=== PATIENT | female | born 1995 | race African-American/Black ===

== ENCOUNTER 2017-04-17 19:16 | Emergency (ER) | payer OTHER ==
[2017-04-17 19:27] VITALS: BMI 19.7
--- NOTE | 2017-04-17 19:56 | PDOC ---
History of Present Illness - General Chief Complaint: Vaginal Bleeding Stated Complaint: VAGINAL BLEEDING Time Seen by Provider: 04/17/17 19:37 - History of Present Illness Initial Comments: 04/17/17 19:53 CHIEF COMPLAINT: vag bleeding HISTORY OF PRESENT ILLNESS: 22 yo F with hx of "thyroid condition" presents to ED with vaginal bleeding x 2 weeks. Patient reports her last period prior to that "was at the end of the month before." She reports b/l pelvic pain but denies any lightheadedness, dizziness, or palpitations. She reports her last STD test was September of last year and was negative. She reports that the bleeding has not been "that much" and that she went through approximately 3-5 pads daily. PAST MEDICAL HISTORY: Denies past medical history FAMILY HISTORY: Denies SOCIAL HISTORY: Denies tobacco, alcohol, illicit drug use. SURGICAL HISTORY: Denies ALLERGIES: No known drug allergies REVIEW OF SYSTEMS General/Constitutional: Denies fever or chills. Denies weakness, weight change. HEENT: Denies change in vision. Denies ear pain or discharge. Denies sore throat. Cardiovascular: Denies chest pain or shortness of breath. Respiratory: Denies cough, wheezing, or hemoptysis. Gastrointestinal: Denies nausea, vomiting, diarrhea or constipation. Denies rectal bleeding. Genitourinary: Vaginal bleeding x 2 weeks. Denies dysuria, frequency, or change in urination. Musculoskeletal: Denies joint or muscle swelling or pain. Denies neck or back pain. Skin and breasts: Denies rash or easy bruising. Neurologic: Denies headache, vertigo, loss of consciousness, or loss of sensation. PHYSICAL EXAM General Appearance: Well-appearing, appropriately dressed. No apparent distress. HEENT: EOMI, PERRLA, normal ENT inspection, normal voice, TMs normal, pharynx normal. No conjunctival pallor. No photophobia, scleral icterus. Respiratory/Chest: Lungs CTAB. Cardiovascular: RRR. S1, S2. Gastrointestinal/Abdominal: B/l pelvic tenderness and minimal tenderness to LUQ. Normal bowel sounds. Abdomen soft, non-distended. No organomegaly, pulsatile mass, guarding, hernia, hepatomegaly, splenomegaly. Pelvic: External genitalia normal without lesions. Vaginal vault with minimal bloody discharge. Cervix is long and closed. No cervical motion tenderness. Uterus is nontender and normal in size. Adnexa are nontender and without masses. Musculoskeletal/Extremities: Normal inspection. FROM of all extremities, normal capillary refill. Pelvis Stable. No CVA tenderness. No tenderness to extremities, pedal edema, swelling, erythema or deformity. Integumentary: Appropriate color, dry, warm. 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 Fully oriented, alert. Appropriate mood/affect. Motor strength 5/5. No appreciable EOM palsy, facial droop or sensory deficit. 04/17/17 21:09 04/17/17 23:02 Past History - Past Medical History Allergies/Adverse Reactions: Allergies Allergy/AdvReac Type Severity Reaction Status Date / Time No Known Allergies Allergy Verified 04/17/17 19:23 Home Medications: Ambulatory Orders Ibuprofen [Motrin -] 600 mg PO TID PRN #21 tablet 04/17/17 COPD: No Other medical history: Pt denies - Suicide/Smoking/Psychosocial Hx Smoking History: Never smoked Have you smoked in the past 12 months: No Information on smoking cessation initiated: No Hx Alcohol Use: No Drug/Substance Use Hx: No Substance Use Type: None *Physical Exam - Vital Signs Last Vital Signs Temp Pulse Resp BP Pulse Ox 97.8 F 76 18 129/82 99 04/17/17 19:24 04/17/17 19:24 04/17/17 19:24 04/17/17 19:24 04/17/17 19:24 ED Treatment Course - LABORATORY CBC & Chemistry Diagram: 04/17/17 20:10 04/17/17 20:10 Medical Decision Making - Medical Decision Making 04/17/17 19:56 22 yo F with hx of "thyroid condition" presents to ED with vaginal bleeding x 2 weeks. -CBC, CMP, T&S, serum preg -TVUS -UA, UCx Ultrasound results: Uterus and endometrial stripe appear normal. No ovarian cysts. Torsion unlikely. No significant free pelvic fluid. Read by Dr. David Danielle MD. Clinical presentation consistent with irregular menstruation. Advised patient to f/u with OBGYN and of signs and symptoms for return to ER; patient verbalized understanding and agrees to plan. *DC/Admit/Observation/Transfer Diagnosis at time of Disposition: Menstruation, abnormal - Discharge Dispostion Disposition: HOME Condition at time of disposition: Stable Admit: No - Prescriptions Prescriptions: Ibuprofen [Motrin -] 600 mg PO TID PRN #21 tablet PRN Reason: pain/cramping - Referrals Referrals: Nicole Serna MD [Staff Physician] - - Patient Instructions Printed Discharge Instructions: DI for Menorrhagia Additional Instructions: As discussed, you MUST follow up with an OBGYN within the next 1-2 weeks for further evaluation of your prolonged bleeding. If you develop lightheadedness, dizziness, significant shortness of breath, palpitations, or significant bleeding (more than one soaked pad an hour), please return to the ER. - Post Discharge Activity
[2017-04-17 20:26] LABS: BASO % 0.9 % (0-2.0); EOS % 3.9 % (0-4.5); HEMATOCRIT 31.8 % (32.4-45.2); HEMOGLOBIN 9.9 GM/dL (10.7-15.3); LYMPH % 33.2 % (8-40); MCH 23.3 pg (25.7-33.7); MEAN CELL VOLUME 75.2 fl (80-96); MEAN PLT VOLUME 8.5 fl (7.5-11.1); MONO % 7.5 % (3.8-10.2); NEUT % 54.5 % (42.8-82.8); PLATELET COUNT 244 K/MM3 (134-434); RBC 4.23 M/mm3 (3.60-5.2); WHITE BLOOD COUNT 6.8 K/mm3 (4.0-10.0)
[2017-04-17 20:54] LABS: URINE APPEARANCE CLEAR; URINE BILIRUBIN NEGATIVE (NEGATIVE); URINE BLOOD NEGATIVE (NEGATIVE); URINE COLOR STRAW; URINE GLUCOSE (UA) NEGATIVE (NEGATIVE); URINE KETONE NEGATIVE (NEGATIVE); URINE LEUK ESTERASE NEGATIVE (NEGATIVE); URINE NITRITE NEGATIVE (NEGATIVE); URINE PROTEIN NEGATIVE (NEGATIVE); URINE UROBILINOGEN 4.0 E.U/dl mg/dL (0.2-1.0)
[2017-04-17 21:04] LABS: ALBUMIN 4.2 g/dl (3.4-5.0); ALK PHOS 61 U/L (45-117); ANION GAP 5 (8-16); BILIRUBIN,TOTAL 0.3 mg/dL (0.2-1.0); BLOOD UREA NITROGEN 14 mg/dL (7-18); CALCIUM 8.3 mg/dL (8.5-10.1); CHLORIDE 104 mmol/L (98-107); CO2 27 mmol/L (21-32); CREATININE 0.6 mg/dL (0.55-1.02); GLUCOSE,RANDOM 98 mg/dL (74-106); POTASSIUM 4.2 mmol/L (3.5-5.1); SGOT/AST 12 U/L (15-37); SGPT/ALT 13 U/L (12-78); SODIUM 136 mmol/L (136-145); TOT PROT 7.9 g/dl (6.4-8.2)
[2017-04-17] MEDS ORDERED: IBUPROFEN 600 MG TABLET (FP) PO ONE ×2 (21:10→21:24)
[2017-04-17 23:16] VITALS: BP 122/76; PULSE 80; TEMP 98.1
== END 2017-04-17 23:23 | disposition home or self-care (01) ==
LOC: JER 19:16
DX: N92.5 Other specified irregular menstruation (principal)
CPT/HCPCS: 36415; 76830-TC; 80053; 81003; 84703; 85025; 86850; 86900; 86901; 87086; 99282-25

== ENCOUNTER 2018-02-06 23:27 | Emergency (ER) | payer SELFPAY ==
--- NOTE | 2018-02-07 00:07 | PDOC ---
History of Present Illness - General Chief Complaint: Pain Stated Complaint: CRAMPS Time Seen by Provider: 02/07/18 00:07 History Source: Patient Exam Limitations: No Limitations - History of Present Illness Initial Comments: 02/07/18 00:33 22 year old female with PMH hypothyroidism, genital herpes presented to ED for suprapubic pain x1 month. She stated he pain is constant, crampy, alleviated by urinating/defecating, no aggravating factors, nonradiating. She admitted to increased urinary frequency x2 weeks. She denied fever, chills, nausea, vomiting , diarrhea, constipation, pain with defecation, blood in stool, vaginal bleeding , vaginal discharge. She stated her LMP was 12/23/17, and that her periods are irregular. She denied history of STI. She is sexually active with one male partner and uses condoms every time. [id number]. Past History - Past Medical History Allergies/Adverse Reactions: Allergies Allergy/AdvReac Type Severity Reaction Status Date / Time No Known Allergies Allergy Verified 02/07/18 00:21 COPD: No - Immunization History Immunization Up to Date: Yes - Suicide/Smoking/Psychosocial Hx Smoking History: Never smoked Have you smoked in the past 12 months: No Hx Alcohol Use: No Drug/Substance Use Hx: No Substance Use Type: None Review of Systems - Review of Systems Able to Perform ROS?: Yes Comments:: 02/07/18 00:35 General: denied fever, chills, night sweats, generalized weakness. HEENT: denied sore throat, rhinorrhea, ear pain. Heart: denied chest pain, palpitations, syncope, lower extremity swelling, diaphoresis. Respiratory: denied shortness of breath, cough, sputum production, hemoptysis. Abdomen: admitted to abdominal pain. denied nausea, vomiting, diarrhea, constipation, blood in stool. : admitted to increased urinary frequency. denied dysuria, hematuria, urinary incontinence, flank pain. Back: denied back pain. Musculoskeletal: denied joint pain, muscle pain, joint swelling. Neurological: denied headache, dizziness, numbness, tingling, weakness. Skin: denied rash, laceration, abrasion. *Physical Exam - Physical Exam Comments: 02/07/18 00:36 Constitutional: Well-nourished, Well-developed, appearing stated age. HEENT: head is normocephalic, atraumatic. EOMI. PERRLA. Neck: supple. Full ROM. Heart: regular rhythm. no murmurs, rubs or gallops. Lungs: clear to auscultation bilaterally. no crackles, rhonchi or wheezing. no stridor. Abdomen: soft, flat. tenderness to palpation of LLQ, suprapubic area. normal bowel sounds. no rebound, guarding, masses. Back: no CVA tenderness bilaterally. Pelvic: normal external genitalia, no lesions. no blood in vaginal vault. no lesions to cervix. normal white discharge. no CMT. no adnexal tenderness bilaterally. Extremities: Peripheral pulses intact. No lower extremity edema. Neurological: CN 2-12 grossly intact. Moves all four extremities. Psych: awake, alert, oriented x3. Follows commands. Answers questions appropriately. ED Treatment Course - LABORATORY CBC & Chemistry Diagram: 02/07/18 00:30 02/07/18 00:30 Medical Decision Making - Medical Decision Making 02/07/18 00:38 22 year old female with above PMH presented to ED for suprapubic painx1 month associated with increased urinary frequency. Afebrile. Mild tachycardia. No hypotension. No tachypnea. Pending CBC, CMP, coags, T/S, serum test, UA/UC, TVUS. PO tylenol ordered for pain. 02/07/18 00:54 Pt reassessed, sitting up straight, laughing with boyfriend. 02/07/18 00:56 CBC WBC 6.5 K/mm3 (4.0-10.0) 02/07/18 00:30 RBC 3.99 M/mm3 (3.60-5.2) 02/07/18 00:30 Hgb 10.7 GM/dL (10.7-15.3) 02/07/18 00:30 Hct 32.2 % (32.4-45.2) L 02/07/18 00:30 MCV 80.9 fl (80-96) 02/07/18 00:30 MCH 26.9 pg (25.7-33.7) D 02/07/18 00:30 MCHC 33.3 g/dl (32.0-36.0) 02/07/18 00:30 RDW 15.4 % (11.6-15.6) 02/07/18 00:30 Plt Count 316 K/MM3 (134-434) D 02/07/18 00:30 MPV 8.4 fl (7.5-11.1) 02/07/18 00:30 Absolute Neuts (auto) 3.7 K/mm3 (1.5-8.0) 02/07/18 00:30 Neutrophils % 57.5 % (42.8-82.8) 02/07/18 00:30 Lymphocytes % 30.2 % (8-40) 02/07/18 00:30 Monocytes % 7.7 % (3.8-10.2) 02/07/18 00:30 Eosinophils % 4.1 % (0-4.5) 02/07/18 00:30 Basophils % 0.5 % (0-2.0) 02/07/18 00:30 Nucleated RBC % 0 % (0-0) 02/07/18 00:30 No leukocytosis. Borderline anemia. 02/07/18 01:35 CMP Sodium 141 mmol/L (136-145) 02/07/18 00:30 Potassium 3.9 mmol/L (3.5-5.1) 02/07/18 00:30 Chloride 105 mmol/L (98-107) 02/07/18 00:30 Carbon Dioxide 31 mmol/L (21-32) 02/07/18 00:30 Anion Gap 5 MMOL/L (8-16) L 02/07/18 00:30 BUN 11 mg/dL (7-18) 02/07/18 00:30 Creatinine 0.7 mg/dL (0.55-1.3) 02/07/18 00:30 Creat Clearance w eGFR > 60 (>60) 02/07/18 00:30 Random Glucose 68 mg/dL (74-106) L 02/07/18 00:30 Calcium 8.7 mg/dL (8.5-10.1) 02/07/18 00:30 Total Bilirubin 0.4 mg/dL (0.2-1) 02/07/18 00:30 AST 21 U/L (15-37) 02/07/18 00:30 ALT 15 U/L (13-61) 02/07/18 00:30 Alkaline Phosphatase 59 U/L (45-117) 02/07/18 00:30 Total Protein 7.7 g/dl (6.4-8.2) 02/07/18 00:30 Albumin 3.9 g/dl (3.4-5.0) 02/07/18 00:30 Lipase 242 U/L (73-393) 02/07/18 00:30 TSH 1.65 uIU/ml (0.358-3.74) 02/07/18 00:30 Beta HCG, Quant < 1.0 mIU/ml 02/07/18 00:30 No electrolyte abnormalities. Hypoglycemia - Pt given juice No LFT abnormalities. Normal lipase. Normal TSH. Negative serum test. 02/07/18 01:46 Urine Test Results Urine Color Yellow 02/07/18 01:23 Urine Appearance Clear 02/07/18 01:23 Urine pH 8.0 (5.0-8.0) D 02/07/18 01:23 Ur Specific [place] 1.025 (1.010-1.035) 02/07/18 01:23 Urine Protein 1+ (NEGATIVE) H 02/07/18 01:23 Urine Glucose (UA) Negative (NEGATIVE) 02/07/18 01:23 Urine Ketones Negative (NEGATIVE) 02/07/18 01:23 Urine Blood Negative (NEGATIVE) 02/07/18 01:23 Urine Nitrite Negative (NEGATIVE) 02/07/18 01:23 Urine Bilirubin Negative (<2.0 mg/dL) 02/07/18 01:23 Ur Leukocyte Esterase Negative (NEGATIVE) 02/07/18 01:23 No evidence of UTI. Pending TVUS report. 02/07/18 01:53 Pt signed out to Dr. Gavin, who will assume care for her while she is in the Emergency Department. 02/08/18 15:58 TVUS report reviewed: no ovarian masses. no evidence of torsion. *DC/Admit/Observation/Transfer Diagnosis at time of Disposition: Suprapubic abdominal pain - Discharge Dispostion Disposition: HOME Condition at time of disposition: Improved - Referrals - Patient Instructions Printed Discharge Instructions: DI for Abdominal Pain-Adult Additional Instructions: Follow up with your OBGYN or primary care provider within the next 3 days. Come back to the ER for any new, worsening or concerning symptom. - Post Discharge Activity
[2018-02-07] MEDS ORDERED: ACETAMINOPHEN 500 MG TABLET (FP) PO ONE (00:37)
[2018-02-07] MEDS ORDERED: ACETAMINOPHEN 325 MG TABLET (FP) PO ONE (00:45)
[2018-02-07] MEDS ORDERED: ACETAMINOPHEN 325 MG TABLET (FP) ONE (00:49)
[2018-02-07 00:52] LABS: BASO % 0.5 % (0-2.0); EOS % 4.1 % (0-4.5); HEMATOCRIT 32.2 % (32.4-45.2); HEMOGLOBIN 10.7 GM/dL (10.7-15.3); LYMPH % 30.2 % (8-40); MCH 26.9 pg (25.7-33.7); MCHC 33.3 g/dl (32.0-36.0); MEAN CELL VOLUME 80.9 fl (80-96); MEAN PLT VOLUME 8.4 fl (7.5-11.1); MONO % 7.7 % (3.8-10.2); NEUT % 57.5 % (42.8-82.8); PLATELET COUNT 316 K/MM3 (134-434); RBC 3.99 M/mm3 (3.60-5.2); RDW 15.4 % (11.6-15.6); WHITE BLOOD COUNT 6.5 K/mm3 (4.0-10.0)
--- NOTE | 2018-02-07 00:55 | PDOC ---
Attending Attestation - HPI HPI: This patient is a 22 year old female with PMHx of hypothyroidism, genital herpes who presents with lower suprapubic abdominal pain (1 month) and increased frequency (2 weeks) She describes pain as constant, cramp-like, non- radiating, alleviated upon urinating/defecating. She also endorses 2 weeks of urinary frequency. LMP in December - she has irregular periods. Denies previous pregnancies. Denies fever, chills, nausea, vomiting, diarrhea, constipation, pain with defecation, blood in stool, vaginal bleeding, vaginal discharge. 02/07/18 01:05 - Physicial Exam PE: GENERAL: Well-appearing, well-nourished. No apparent distress. HEENT: Normocephalic, atraumatic. PERRL, EOM intact. CARDIOVASCULAR: Normal S1, S2. Regular rate and rhythm. PULMONARY: Clear to auscultation bilaterally. ABDOMEN: Soft, non-distended, LLQ and suprapubic tenderness to palpation. EXTREMITIES: Normal ROM in all four extremities. No gross deformities. SKIN: Warm, dry. No rash NEUROLOGICAL: No focal neurological deficits. 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
[2018-02-07 01:02] VITALS: BP 118/76; PULSE 102; TEMP 98.6; BMI 21.9
[2018-02-07 01:13] LABS: INR 0.97 (0.83-1.09); PROTHROMBIN TIME (PATIENT) 11.4 SEC (9.7-13.0)
[2018-02-07 01:16] LABS: ACTIVATED PTT 32.3 SECONDS (25.2-36.5)
[2018-02-07 01:23] LABS: ALBUMIN 3.9 g/dl (3.4-5.0); ALK PHOS 59 U/L (45-117); ANION GAP 5 MMOL/L (8-16); BILIRUBIN,TOTAL 0.4 mg/dL (0.2-1); BLOOD UREA NITROGEN 11 mg/dL (7-18); CALCIUM 8.7 mg/dL (8.5-10.1); CHLORIDE 105 mmol/L (98-107); CO2 31 mmol/L (21-32); CREATININE 0.7 mg/dL (0.55-1.3); GLUCOSE,RANDOM 68 mg/dL (74-106); LIPASE 242 U/L (73-393); POTASSIUM 3.9 mmol/L (3.5-5.1); SGOT/AST 21 U/L (15-37); SGPT/ALT 15 U/L (13-61); SODIUM 141 mmol/L (136-145); TOT PROT 7.7 g/dl (6.4-8.2)
[2018-02-07 01:42] LABS: URINE APPEARANCE CLEAR; URINE BILIRUBIN NEGATIVE (<2.0 mg/dL); URINE COLOR YELLOW; URINE GLUCOSE (UA) NEGATIVE (NEGATIVE); URINE KETONE NEGATIVE (NEGATIVE); URINE LEUK ESTERASE NEGATIVE (NEGATIVE); URINE NITRITE NEGATIVE (NEGATIVE); URINE PROTEIN 1+ (NEGATIVE)
[2018-02-07 01:53] LABS: EPI CELLS RARE /HPF (FEW); URINE MUCUS RARE
--- NOTE | 2018-02-07 02:48 | PDOC ---
*Physical Exam - Vital Signs Last Vital Signs Temp Pulse Resp BP Pulse Ox 98.6 F 102 H 18 118/76 99 02/06/18 23:56 02/06/18 23:56 02/06/18 23:56 02/06/18 23:56 02/06/18 23:56 ED Treatment Course - LABORATORY CBC & Chemistry Diagram: 02/07/18 00:30 02/07/18 00:30 - ADDITIONAL ORDERS Additional order review: Laboratory Results 02/07/18 02/07/18 02/07/18 01:23 00:30 00:30 PT with INR 11.40 INR 0.97 PTT (Actin FS) 32.3 Sodium 141 Potassium 3.9 Chloride 105 Carbon Dioxide 31 Anion Gap 5 L BUN 11 Creatinine 0.7 Creat Clearance w eGFR > 60 Random Glucose 68 L Calcium 8.7 Total Bilirubin 0.4 AST 21 ALT 15 Alkaline Phosphatase 59 Total Protein 7.7 Albumin 3.9 Lipase 242 TSH 1.65 Beta HCG, Quant < 1.0 Urine Color Yellow Urine Appearance Clear Urine pH 8.0 D Ur Specific [place] 1.025 Urine Protein 1+ H Urine Glucose (UA) Negative Urine Ketones Negative Urine Blood Negative Urine Nitrite Negative Urine Bilirubin Negative Urine Urobilinogen 2.0 H Ur Leukocyte Esterase Negative Urine WBC (Auto) 1 Urine RBC (Auto) <1 Ur Epithelial Cells Rare Urine Mucus Rare 02/07/18 00:30 RBC 3.99 MCV 80.9 MCHC 33.3 RDW 15.4 MPV 8.4 Neutrophils % 57.5 Lymphocytes % 30.2 Monocytes % 7.7 Eosinophils % 4.1 Basophils % 0.5 - Medications Given in the ED: ED Medications Discontinued Medications Generic Name Dose Route Start Last Admin Trade Name Megan PRN Reason Stop Dose Admin Acetaminophen 1,000 mg 02/07/18 00:37 02/07/18 00:52 Tylenol - PO 02/07/18 00:38 Not Given ONCE ONE Acetaminophen 975 mg 02/07/18 00:45 02/07/18 00:51 Tylenol - PO 02/07/18 00:46 975 mg ONCE ONE Administration *DC/Admit/Observation/Transfer Diagnosis at time of Disposition: Suprapubic abdominal pain - Discharge Dispostion Disposition: HOME Condition at time of disposition: Improved Decision to Admit order: No - Referrals - Patient Instructions Printed Discharge Instructions: DI for Abdominal Pain-Adult Additional Instructions: Follow up with your OBGYN or primary care provider within the next 3 days. Come back to the ER for any new, worsening or concerning symptom. - Post Discharge Activity
== END 2018-02-07 03:00 | disposition home or self-care (01) ==
LOC: JER 23:27
DX: R10.30 Lower abdominal pain, unspecified (principal); E03.9 Hypothyroidism, unspecified; B00.89 Other herpesviral infection
CPT/HCPCS: 36415; 76830-TC; 80053; 81003; 81015; 83690; 84443; 84702; 85025; 85610; 85730; 86850; 86900; 86901; 87086; 99284-25

== ENCOUNTER 2018-05-14 12:15 | Emergency (ER) | payer SELFPAY ==
[2018-05-14 12:44] VITALS: BP 112/76; PULSE 72; TEMP 98.4; BMI 17.9
[2018-05-14] MEDS ORDERED: ACETAMINOPHEN 325 MG TABLET (FP) PO ONE (13:43)
--- NOTE | 2018-05-14 13:43 | PDOC ---
History of Present Illness - General Chief Complaint: Pain, Acute Stated Complaint: ABD PAIN/ FEVER Time Seen by Provider: 05/14/18 13:25 History Source: Patient Exam Limitations: No Limitations - History of Present Illness Initial Comments: 05/14/18 16:00 Patient is a 23-year-old female no past medical history who presents to the ER with 1 week of abdominal pain. Patient states that the pain is "all over her stomach "she states that she hasn't been eating much due to the pain. She states that her last bowel movement was approximately 2 weeks ago. Nothing makes the pain better or worse. Also admits to subjective fevers. Denies nausea , vomiting, diarrhea, frequency, urgency, hematuria, lightheadedness and dizziness. Past History - Travel Traveled outside of the country in the last 30 days: No Close contact w/someone who was outside of country & ill: No - Past Medical History Allergies/Adverse Reactions: Allergies Allergy/AdvReac Type Severity Reaction Status Date / Time peanut Allergy Verified 05/14/18 12:41 Home Medications: Ambulatory Orders Polyethylene Glycol 3350 [Miralax (For Bowel Prep) -] 17 gm PO DAILY #1 bottle 05/14/18 COPD: No - Immunization History Immunization Up to Date: Yes - Suicide/Smoking/Psychosocial Hx Smoking History: Never smoked Have you smoked in the past 12 months: No Hx Alcohol Use: No Drug/Substance Use Hx: No Substance Use Type: None Review of Systems - Review of Systems Able to Perform ROS?: Yes Comments:: 05/14/18 16:03 CONSTITUTIONAL: Absent: fever, chills, diaphoresis, generalized weakness, malaise, loss of appetite HEENT: Absent: rhinorrhea, nasal congestion, throat pain, throat swelling, difficulty swallowing, mouth swelling, ear pain, eye pain, visual Changes CARDIOVASCULAR: Absent: chest pain, loss of consciousness, palpitations, irregular heart rate, peripheral edema RESPIRATORY: Absent: cough, shortness of breath, dyspnea with exertion, orthopnea, wheezing, stridor, hemoptysis GASTROINTESTINAL: Present: generalized abdominal pain, constipation Absent: abdominal distension , nausea, vomiting, diarrhea, melena, hematochezia GENITOURINARY: Absent: dysuria, frequency, urgency, hesitancy, hematuria, flank pain, genital pain MUSCULOSKELETAL: Absent: myalgia, arthralgia, joint swelling SKIN: Absent: rash, itching, pallor HEMATOLOGIC/IMMUNOLOGIC: Absent: easy bleeding, easy bruising, lymphadenopathy, frequent infections ENDOCRINE: Absent: unexplained weight gain, unexplained weight loss, heat intolerance, cold intolerance NEUROLOGIC: Absent: headache, focal weakness or paresthesias, dizziness, unsteady gait, seizure, mental status changes, bladder or bowel incontinence PSYCHIATRIC: Absent: anxiety, depression, suicidal or homicidal ideation, hallucinations. 05/14/18 16:22 Is the patient limited Indonesian proficient: No *Physical Exam - Vital Signs Last Vital Signs Temp Pulse Resp BP Pulse Ox 98.4 F 72 18 112/76 100 05/14/18 12:41 05/14/18 12:41 05/14/18 12:41 05/14/18 12:41 05/14/18 12:41 - Physical Exam Comments: 05/14/18 16:22 GENERAL: Well developed, well nourished. Awake and alert. No acute distress. HEENT: Normocephalic, atraumatic. PERRLA, EOMI. No conjunctival pallor. Sclera are non- icteric. Moist mucous membranes. Oropharynx is clear. NECK: Supple. Full ROM. No JVD. Carotid pulses 2+ and symmetric, without bruits. No thyromegaly. No lymphadenopathy. CARDIOVASCULAR: Regular rate and rhythm. No murmurs, rubs, or gallops. Distal pulses are 2+ and symmetric. PULMONARY: No evidence of respiratory distress. Lungs clear to auscultation bilaterally. No wheezing, rales or rhonchi. ABDOMINAL: Generalized tenderness to palpation of the abdomen with no focal findings. Soft. Non-distended. No rebound or guarding. No organomegaly. Normoactive bowel sounds. MUSCULOSKELETAL Normal range of motion at all joints. No bony deformities or tenderness. No CVA tenderness. EXTREMITIES: No cyanosis. No clubbing. No edema. No calf tenderness. SKIN: Warm and dry. Normal capillary refill. No rashes. No jaundice. NEUROLOGICAL: Alert, awake, appropriate. Cranial nerves 2-12 intact. No deficits to light touch and temperature in face, upper extremities and lower extremities. No motor deficits in the in face, upper extremities and lower extremities. Normoreflexic in the upper and lower extremities. Normal speech. Toes are down- going bilaterally. Gait is normal without ataxia. PSYCHIATRIC: Cooperative. Good eye contact. Appropriate mood and affect. 05/14/18 16:35 Moderate Sedation - Procedure Monitoring Vital Signs: Procedure Monitoring Vital Signs Temperature 98.4 F 05/14/18 12:41 Pulse Rate 72 05/14/18 12:41 Respiratory Rate 18 05/14/18 12:41 Blood Pressure 112/76 05/14/18 12:41 O2 Sat by Pulse Oximetry (%) 100 05/14/18 12:41 ED Treatment Course - LABORATORY CBC & Chemistry Diagram: 05/14/18 14:14 05/14/18 14:14 Medical Decision Making - Medical Decision Making 05/14/18 16:35 Patient is a 23-year-old female no past medical history who presents to the ER for one week of abdominal pain and 2 weeks without a bowel movement. On exam abdomen is diffusely tender with no focal findings. Abdomen is also mildly protuberant. Basic labs, urine, abdomen x-ray, Tylenol ordered. No leukocytosis, electrolytes are grossly normal. Urine is negative for infection. Abdomen x-ray with a large stool burden at this time. Given no focal tenderness , normal lab work most likely constipation. Patient states she does have similar episodes like this in the past but they usually resolve themselves. Repeat abdomen exam with decreased pain diffusely. GI follow-up given. Discharge home I discussed the physical exam findings, ancillary test results and final diagnoses with the patient. I answered all of the patient's questions. The patient was satisfied with the care received and felt comfortable with the discharge plan and treatment plan. The Patient agrees to follow up with the primary care physician/specialist within 24-72 hours. Return precautions were given. *DC/Admit/Observation/Transfer Diagnosis at time of Disposition: Constipation Qualifiers: Constipation type: unspecified constipation type Qualified Code(s): K59.00 - Constipation, unspecified Abdominal pain Qualifiers: Abdominal location: generalized Qualified Code(s): R10.84 - Generalized abdominal pain - Discharge Dispostion Disposition: HOME Condition at time of disposition: Stable Decision to Admit order: No - Prescriptions Prescriptions: Polyethylene Glycol 3350 [Miralax (For Bowel Prep) -] 17 gm PO DAILY #1 bottle - Referrals Referrals: Yoseph Villalobos MD [Staff Physician] - - Patient Instructions Printed Discharge Instructions: DI for Constipation Additional Instructions: You were evaluated for your abdominal pain today Your lab work does not show an infection at this time Your x-ray shows a lot of stool in the colon Please drink plenty of fluids and eat foods high in fiber Take the miralax daily to help soften your stool Please follow up with gastroenterology; a referral has been provided Return to the ED for worsening abdominal pain, lightheadness, vomiting, or if you have any changes in your symptoms - Post Discharge Activity Forms/Work/School Notes: Back to Work
[2018-05-14] MEDS ORDERED: ACETAMINOPHEN 325 MG TABLET (FP) ONE (14:15)
[2018-05-14 14:35] LABS: URINE APPEARANCE CLEAR; URINE BILIRUBIN NEGATIVE (<2.0 mg/dL); URINE COLOR YELLOW; URINE GLUCOSE (UA) NEGATIVE (NEGATIVE); URINE KETONE TRACE (NEGATIVE); URINE LEUK ESTERASE NEGATIVE (NEGATIVE); URINE NITRITE NEGATIVE (NEGATIVE); URINE PROTEIN 1+ (NEGATIVE); URINE UROBILINOGEN 4.0 E.U/dl mg/dL (0.2-1.0)
[2018-05-14 14:47] LABS: ALBUMIN 4.3 g/dl (3.4-5.0); ALK PHOS 51 U/L (45-117); ANION GAP 3 MMOL/L (8-16); BILIRUBIN,TOTAL 0.3 mg/dL (0.2-1); BLOOD UREA NITROGEN 21 mg/dL (7-18); CALCIUM 8.7 mg/dL (8.5-10.1); CHLORIDE 106 mmol/L (98-107); CO2 28 mmol/L (21-32); CREATININE 0.7 mg/dL (0.55-1.3); GLUCOSE,RANDOM 89 mg/dL (74-106); POTASSIUM 4.5 mmol/L (3.5-5.1); SGOT/AST 15 U/L (15-37); SGPT/ALT 11 U/L (13-61); SODIUM 137 mmol/L (136-145); TOT PROT 8.4 g/dl (6.4-8.2)
[2018-05-14 14:56] LABS: BASO % 0.5 % (0-2.0); EOS % 6.3 % (0-4.5); HEMATOCRIT 36.4 % (32.4-45.2); HEMOGLOBIN 12.1 GM/dL (10.7-15.3); LYMPH % 36.4 % (8-40); MCH 27.3 pg (25.7-33.7); MCHC 33.2 g/dl (32.0-36.0); MEAN CELL VOLUME 82.2 fl (80-96); MEAN PLT VOLUME 8.7 fl (7.5-11.1); MONO % 10.3 % (3.8-10.2); NEUT % 46.5 % (42.8-82.8); PLATELET COUNT 250 K/MM3 (134-434); RBC 4.43 M/mm3 (3.60-5.2); RDW 15.9 % (11.6-15.6); WHITE BLOOD COUNT 3.8 K/mm3 (4.0-10.0)
[2018-05-14 15:13] LABS: HCG,QUALITATIVE URINE Negative
[2018-05-14 15:32] LABS: EPI CELLS NONE SEEN /HPF (FEW); URINE BACTERIA R /hpf (NONE SEEN)
== END 2018-05-14 16:10 | disposition home or self-care (01) ==
LOC: JER 12:15
DX: K59.00 Constipation, unspecified (principal)
CPT/HCPCS: 36415; 74019-TC-FY; 80053; 81003; 81015; 84703; 85025; 99283-25

== ENCOUNTER 2018-08-18 19:33 | Emergency (ER) | payer SELFPAY | END 2018-08-18 20:48 | disposition home or self-care (01) | LOC: JER 19:33 ==

== ENCOUNTER 2019-02-25 06:53 | Emergency (ER) | payer OTHER ==
[2019-02-25 07:33] VITALS: BMI 19.5
--- NOTE | 2019-02-25 08:13 | PDOC ---
Attending Attestation - Resident Resident Name: Addi Ford - ED Attending Attestation I have performed the following: I have examined & evaluated the patient, The case was reviewed & discussed with the resident, I agree w/resident's findings & plan, Exceptions are as noted - HPI HPI: 02/25/19 12:16 Ms. Singh is a 23 yo F who presents to the ER with a complaint of seizure like activity Pt went out with her sister last night Per sister, she was noted to be shaking hands and feet Her eyes then rolled back, and she was "out" for 10 minutes Pt was told that she possibly had a seizure She went home, panicked and then come in to the ER Pt denies tongue biting, urinary incontinence, or fecal incontinence. Denies trauma. Pt denies EtOH or street drug abuse. Pt denies family history of epilepsy, sudden , cardiac conditions - Physicial Exam PE: 02/25/19 08:13 GENERAL: The patient is in no acute distress. ENT: Ears normal, nares patent, oropharynx clear without exudates. Moist mucous membranes. NECK: Normal range of motion, supple LUNGS: Breath sounds equal, clear to auscultation bilaterally. No wheezes, and no crackles. HEART:Regular rate and rhythm, normal S1 and S2 without murmur, rub or gallop. ABDOMEN: Soft, nontender, normoactive bowel sounds. EXTREMITIES: Normal range of motion, no edema. NEUROLOGICAL: Cranial nerves II through XII grossly intact. Normal speech. No focal neurological deficits. SKIN: Warm, Dry, normal turgor, no rashes or lesions noted. 02/25/19 12:27 - Medical Decision Making 02/25/19 12:28 Laboratory Tests 02/25/19 02/25/19 02/25/19 09:00 09:00 10:05 WBC 7.0 Hgb 12.5 Hct 38.9 Plt Count 380 D BUN 11.4 Creatinine 0.6 Ur Leukocyte Esterase 1+ H Urine WBC (Auto) 7 Urine RBC (Auto) 0 Urine HCG, Qual 02/25/19 10:15 WBC Hgb Hct Plt Count BUN Creatinine Ur Leukocyte Esterase Urine WBC (Auto) Urine RBC (Auto) Urine HCG, Qual Negative CT head: negative Will discharge to home Follow up with PMD within 1 week Discharge - Discharge Information Problems reviewed: Yes Clinical Impression/Diagnosis: Seizure-like activity Condition: Good Disposition: HOME - Follow up/Referral - Patient Discharge Instructions Patient Printed Discharge Instructions: DI for Psychogenic Nonepileptic Seizures Additional Instructions: You were seen today after having seizure-like activity last night at the club. Your Head CT and blood work was all normal today. 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 This is generally non-life threatening. Please follow up with your primary care doctor in the next week. You will need to call to make the appointment. I have included all of your results from today s visit in the packet. Take it with you so your doctor can review them. Print Language: LATVIAN - Post Discharge Activity Work/Back to School Note: Back to Work
--- NOTE | 2019-02-25 09:03 | PDOC ---
History of Present Illness - General Chief Complaint: Syncope/Near Syncope Stated Complaint: SEIZURE Time Seen by Provider: 02/25/19 07:59 History Source: Patient Exam Limitations: No Limitations - History of Present Illness Initial Comments: HPI: 23 y/o female presenting to [facility] ER complaining of "a seizure," now with bifrontal headache. Pt reports she felt cold then blacked out for approx. 10 minutes while at the club this morning around 3AM. Her sister (not present at bedside) witnessed the event and told the pt her eyes rolled back in her head and she was shaking all over. She then went home and "was panicking" because she had a seizure. Pt denies tongue biting, urinary incontinence, or fecal incontinence. Denies trauma. Pt denies EtOH or street drug abuse. Denies unexplained bruising. Denies heavy caffeine usage. Denies using over the counter vitamins or supplements. Social Hx: - denies significant life stressors. - Feels safe in relationship and in living environment Family Hx: - Denies sudden - Denies while swimming - Denies cardiac problems - Denies seizure disorders Medical Hx: - HSV-2 Surgical Hx: - Pt denies past surgical history Review of Systems: In addition to that documented in the HPI above, the additional ROS was obtained : Constitutional- Denies fevers or chills Head- Denies vision changes ENMT- Denies sore throat CV- Denies chest pain Resp- Denies SOB GI- Denies vomiting or diarrhea - Denies painful urination MSK- Denies recent trauma Skin- Denies new rashes Neuro- Denies new numbness or tingling or weakness Endocrine- Denies polyuria Heme- Denies bleeding or bruising Physical Examination: Vital signs and nursing notes reviewed. Constitutional- Well-developed, well-nourished adult female in no acute distress or obvious discomfort. Thin body habitus. Found semi-fowlers on hospital bed. Head- Normocephalic. No obvious external signs of trauma. Eyes- Pupils 3mm and PERRL. EOMI. Sclerae white. Conjunctiva moist and not injected. Ears- Hearing grossly intact. Nose- No nasal discharge. Throat- Oral cavity and pharynx normal. No inflammation, swelling, exudate, or lesions. Teeth and gingiva in good general condition. Uvula midline. Neck- Supple, trachea is midline. Cardiovascular / Chest- Regular rate and regular rhythm. No murmur, rubs, clicks , or gallops. Peripheral pulses- radial pulses full. No pretibial edema. Respiratory- Breathing unlabored. Equal chest rise and fall. Clear to auscultation bilaterally. No stridor, no wheezing, no rhonchi. Gastrointestinal- abdomen is soft, non-tender, non-distended. No hepatosplenemegaly. No pulsatile masses. No overlying skin lesions or obvious signs of trauma. Neuro- Alert and oriented x4. Moving all four extremities spontaneously. No facial asymmetry. No slurred speech. No upper or lower extremity drift. Sensation to all four extremities intact. Proximal and distal strength 5/5. Food Beverage Manager strength 5/5 - equal and symmetric. Plantar flexion and dorsiflexion 5/5. No nuchal rigidity. Intact rapid alternating movements and heel to hancock. Skin- Warm, dry, and intact. No bruising, rashes, or other lesions. - No R or L CVA tenderness. Psych- Downward gaze with little eye contact. Affect- withdrawn. Speech was non- labored, non-pressured. Dressed and groomed appropriately. MDM: 23 y/o female presenting with seizure-like activity. No h/o similar. Afebrile. Vitals unremarkable for hypotension or tachycardia. Physical exam as described above. No acute neurologic deficits. HCT unremarkable for acute intracranial pathology. Labs reviewed without significant derangement. UTox and BAL all negative. 25 Feb 2019 11:53 AM Telephone conversation with pts sister on the pts cell phone. Reports her sister was standing when the shaking started in her hands and legs. Her eyes were open and tracking appropriately. She was able to walk outside of the club unassisted while the episode was occuring. Pt never lost muscle tone. Suspect likely non-epileptic seizures given description from sister and unremarkable ED workup. Discussed physical exam findings, laboratory results, and CT findings with pt. Answered all questions. Provided return precautions. pt expressed verbal understanding and agreement with plan to discharge home with outpatient follow up. Provided copies of todays results. Addi Ford M.D., PGY2 Emergency Medicine Resident Past History - Past Medical History Allergies/Adverse Reactions: Allergies Allergy/AdvReac Type Severity Reaction Status Date / Time peanut Allergy Verified 02/25/19 07:20 Home Medications: Ambulatory Orders NK [No Known Home Medication] 02/25/19 COPD: No - Immunization History Immunization Up to Date: Yes - Psycho Social/Smoking Cessation Hx Smoking History: Never smoked Have you smoked in the past 12 months: No Hx Alcohol Use: No Drug/Substance Use Hx: No Substance Use Type: None *Physical Exam - Vital Signs Last Vital Signs Temp Pulse Resp BP Pulse Ox 97.9 F 102 H 16 125/79 99 02/25/19 07:22 02/25/19 07:22 02/25/19 07:22 02/25/19 07:22 02/25/19 07:22 ED Treatment Course - LABORATORY CBC & Chemistry Diagram: 02/25/19 09:00 02/25/19 09:00 - ADDITIONAL ORDERS Additional order review: Laboratory Results 02/25/19 08:16 POC Glucometer 97 02/25/19 08:16 POC Glucometer 97 Discharge - Discharge Information Problems reviewed: Yes Clinical Impression/Diagnosis: Seizure-like activity Condition: Good Disposition: HOME - Admission No - Follow up/Referral - Patient Discharge Instructions Patient Printed Discharge Instructions: DI for Psychogenic Nonepileptic Seizures Additional Instructions: You were seen today after having seizure-like activity last night at the club. Your Head CT and blood work was all normal today. 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 This is generally non-life threatening. Please follow up with your primary care doctor in the next week. You will need to call to make the appointment. I have included all of your results from today s visit in the packet. Take it with you so your doctor can review them. Print Language: ETHIOPIAN - Post Discharge Activity
[2019-02-25 09:36] LABS: BASO % 0.5 % (0-2.0); BLOOD UREA NITROGEN 11.4 mg/dL (7-18); CALCIUM 9.9 mg/dL (8.5-10.1); CREATININE 0.6 mg/dL (0.55-1.3); EOS % 1.7 % (0-4.5); HEMATOCRIT 38.9 % (32.4-45.2); HEMOGLOBIN 12.5 GM/dL (10.7-15.3); LYMPH % 18.5 % (8-40); MCH 26.7 pg (25.7-33.7); MEAN CELL VOLUME 83.3 fl (80-96); MONO % 5.7 % (3.8-10.2); NEUT % 73.6 % (42.8-82.8); PLATELET COUNT 380 K/MM3 (134-434); POTASSIUM 4.4 mmol/L (3.5-5.1); RBC 4.67 M/mm3 (3.60-5.2); RDW 15.4 % (11.6-15.6)
[2019-02-25 09:46] LABS: MAGNESIUM 2.1 mg/dL (1.8-2.4)
[2019-02-25 10:33] LABS: EPI CELLS 7.6 /HPF (0-5/HPF); HYALINE CASTS 1 /lpf (0-8); PH,URINE 7.5 (5.0-8.0); URINE APPEARANCE CLEAR; URINE BACTERIA 167.4 /hpf (NEGATIVE); URINE BILIRUBIN NEGATIVE (NEGATIVE); URINE COLOR YELLOW; URINE GLUCOSE (UA) NEGATIVE (NEGATIVE); URINE KETONE NEGATIVE (NEGATIVE); URINE LEUK ESTERASE 1+ (NEGATIVE); URINE NITRITE NEGATIVE (NEGATIVE); URINE PROTEIN NEGATIVE (NEGATIVE); URINE RBC 0 /hpf (0-4); URINE UROBILINOGEN 0.2 mg/dL (0.2-1.0); URINE WBC 7 /hpf (0-5)
[2019-02-25 10:59] LABS: COCAINE, UR NEGATIVE ng/ml (CUTOFF=300); METHADONE, UR NEGATIVE ng/ml (CUTOFF=300); OPIATES, URI NEGATIVE ng/ml (CUTOFF=300); PHENCYCLIDINE,URINE NEGATIVE ng/ml (CUTOFF=25); URINE AMPHETAMINES NEGATIVE ng/ml (CUTOFF=500); URINE BARBITURATES NEGATIVE ng/ml (CUTOFF=200); URINE BENZODIAZEPINES NEGATIVE ng/ml (CUTOFF=200)
[2019-02-25 12:23] VITALS: BP 120/83; PULSE 88; TEMP 97.8
--- NOTE | 2019-02-25 14:04 | EKG ---
Test Reason : Blood Pressure : / mmHG Vent. Rate : 076 BPM Atrial Rate : 076 BPM P-R Int : 184 ms QRS Dur : 074 ms QT Int : 376 ms P-R-T Axes : 069 071 056 degrees QTc Int : 423 ms NORMAL SINUS RHYTHM WITH SINUS ARRHYTHMIA NORMAL ECG NO PREVIOUS ECGS AVAILABLE Confirmed by SAM DIANE MD ([id number]) on 02/25/2019 2:04:11 PM Referred By: Confirmed By:SAM DIANE MD
[2019-02-27 02:06] LABS: PHOSPHOROUS 4.1 mg/dL (2.5-4.9)
== END 2019-02-25 12:33 | disposition home or self-care (01) ==
LOC: JER 06:53
DX: R56.9 Unspecified convulsions (principal); Z91.018 Allergy to other foods
CPT/HCPCS: 36415; 70450-TC; 80048; 80307; 81003; 82962; 83735; 84100; 84703; 85025; 87077; 87086; 93005; 93010; 99283-25

== ENCOUNTER 2019-10-17 18:47 | Emergency (ER) | payer OTHER ==
[2019-10-17] MEDS ORDERED: SODIUM CHLORIDE 1,000 ML IV STA (18:50)
--- NOTE | 2019-10-17 18:50 | PDOC ---
Rapid Medical Evaluation Time Seen by Provider: 10/17/19 18:48 Medical Evaluation: Allergies Allergy/AdvReac Type Severity Reaction Status Date / Time peanut Allergy Verified 02/25/19 07:20 10/17/19 18:48 I have performed a brief in-person evaluation of this patient. CC:diffuse abdominal pain x2-3 weeks; Denies n/v/d. Vaginal bleeding x3 months PE: Abd SNTND. Orders: labs, urine Patient will proceed to ED for further evaluation. Discharge Disposition - Diagnosis Abdominal pain - Referrals - Patient Instructions - Post Discharge Activity
[2019-10-17 18:52] VITALS: TEMP 98.4; BMI 25.8
[2019-10-17 19:45] LABS: BASO % 1.1 % (0-2.0); EOS % 2.9 % (0-4.5); HEMATOCRIT 34.2 % (32.4-45.2); HEMOGLOBIN 10.5 GM/dL (10.7-15.3); LYMPH % 35.1 % (8-40); MCH 22.9 pg (25.7-33.7); MCHC 30.5 g/dl (32.0-36.0); MEAN CELL VOLUME 75.1 fl (80-96); MONO % 7.4 % (3.8-10.2); NEUT % 53.5 % (42.8-82.8); PLATELET COUNT 337 K/MM3 (134-434); RBC 4.56 M/mm3 (3.60-5.2); RDW 17.4 % (11.6-15.6); WHITE BLOOD COUNT 5.5 K/mm3 (4.0-10.0)
[2019-10-17 19:47] LABS: EPI CELLS >36 /uL (0-25.1); HYALINE CASTS 15 /uL (0-3.1); PH,URINE 5.5 (5.0-8.0); URINE APPEARANCE CLOUDY; URINE BACTERIA 840 /uL (0-1359); URINE BILIRUBIN 2+ (NEGATIVE); URINE COLOR DK YELLOW; URINE GLUCOSE (UA) NEGATIVE (NEGATIVE); URINE KETONE TRACE (NEGATIVE); URINE LEUK ESTERASE TRACE (NEGATIVE); URINE NITRITE NEGATIVE (NEGATIVE); URINE PROTEIN 2+ (NEGATIVE); URINE RBC 3 /uL (0-23.9); URINE WBC 73 /uL (0-25.8)
[2019-10-17 20:06] LABS: ALBUMIN 4.4 g/dl (3.4-5.0); BILIRUBIN,TOTAL 0.6 mg/dL (0.2-1); BLOOD UREA NITROGEN 12.6 mg/dL (7-18); CALCIUM 9.4 mg/dL (8.5-10.1); CREATININE 0.8 mg/dL (0.55-1.3); POTASSIUM 3.7 mmol/L (3.5-5.1); TOT PROT 8.2 g/dl (6.4-8.2)
--- NOTE | 2019-10-17 20:22 | PDOC ---
History of Present Illness - General Chief Complaint: Pain, Acute Stated Complaint: ABD PAIN Time Seen by Provider: 10/17/19 18:48 - History of Present Illness Initial Comments: 10/17/19 20:19 24-year-old female without comorbidities presents for intermittent vaginal bleeding x3 months and mild abdominal cramping no systemic symptoms Past History - Medical History Allergies/Adverse Reactions: Allergies Allergy/AdvReac Type Severity Reaction Status Date / Time peanut Allergy Verified 02/25/19 07:20 Home Medications: Ambulatory Orders NK [No Known Home Medication] 02/25/19 COPD: No - Reproductive History Is Patient Now?: No - Immunization History Immunization Up to Date: Yes - Psycho-Social/Smoking History Smoking History: Never smoked Have you smoked in the past 12 months: No Information on smoking cessation initiated: No - Substance Abuse Hx (Audit-C & DAST Scrn) How often the patient has a drink containing alcohol: Never Score: In Men: 4 or > Positive; In Women: 3 or > Positive: 0 Screen Result (Pos requires Nsg. Audit-10AR): Negative In the last yr the pt used illegal drug/Rx for NonMed reason: No Score: Yes response is considered Positive: 0 Screen Result (Positive result requires Nsg. DAST-10): Negative Review of Systems - Review of Systems Constitutional: No: Chills, Fever, Malaise, Night Sweats ABD/GI: No: Nausea, Vomiting *Physical Exam - Vital Signs Last Vital Signs Temp Pulse Resp BP Pulse Ox 98.4 F 84 18 132/92 95 10/17/19 18:49 10/17/19 18:49 10/17/19 18:49 10/17/19 18:49 10/17/19 18:49 - Physical Exam General Appearance: Yes: Nourished, Appropriately Dressed. No: Apparent Distress HEENT: positive: Symmetrical Neck: positive: Supple Respiratory/Chest: positive: Normal Breath Sounds. negative: Respiratory Distress Musculoskeletal: positive: Normal Inspection Extremity: positive: Normal Inspection Integumentary: positive: Normal Color, Dry, Warm Neurologic: positive: gold leaf gilder II-XII NML intact, Fully Oriented, Alert, Normal Mood/Affect, Normal Response ED Treatment Course - LABORATORY CBC & Chemistry Diagram: 10/17/19 19:02 10/17/19 19:02 - ADDITIONAL ORDERS Additional order review: Laboratory Results 10/17/19 10/17/19 10/17/19 19:02 19:02 19:02 Sodium 140 Potassium 3.7 Chloride 104 Carbon Dioxide 25 Anion Gap 12 BUN 12.6 Creatinine 0.8 Est GFR (CKD-EPI)AfAm 120.44 Est GFR (CKD-EPI)NonAf 103.92 Random Glucose 80 Calcium 9.4 Total Bilirubin 0.6 AST 18 ALT 15 Alkaline Phosphatase 44 L Total Protein 8.2 Albumin 4.4 Lipase 78 Serum , Qual Negative Urine Color Dk yellow Urine Appearance Cloudy Urine pH 5.5 D Ur Specific [place] 1.033 Urine Protein 2+ H Urine Glucose (UA) Negative Urine Ketones Trace H Urine Blood 3+ H Urine Nitrite Negative Urine Bilirubin 2+ H Urine Urobilinogen 1.0 Ur Leukocyte Esterase Trace Urine WBC (Auto) 73 Urine RBC (Auto) 3 Urine Casts (Auto) 15 U Epithel Cells (Auto) >36 Urine Bacteria (Auto) 840 10/17/19 19:02 RBC 4.56 MCV 75.1 L MCHC 30.5 L RDW 17.4 H MPV 9.0 Neutrophils % 53.5 D Lymphocytes % 35.1 D Monocytes % 7.4 Eosinophils % 2.9 Basophils % 1.1 - Medications Given in the ED: ED Medications Discontinued Medications Generic Name Dose Route Start Last Admin Trade Name Freq PRN Reason Stop Dose Admin Sodium Chloride 1,000 mls @ 1,000 mls/hr 10/17/19 18:50 10/17/19 19:24 Normal Saline - IV 10/17/19 19:49 1,000 mls/hr ASDIR STA Administration Medical Decision Making - Medical Decision Making 10/17/19 20:20 24-year-old female with a past medical history of hypothyroidism presents for intermittent vaginal bleeding x3 months microcytic anemia on laboratory work today. No emergent intervention necessary at this time refer to [facility] I have reviewed the pathophysiology with the patient. They are in agreement with the treatment plan all questions were answered to their satisfaction. Understanding for follow-up without fail was also conveyed to the patient. Again they are in agreement. Discharge - Discharge Information Problems reviewed: Yes Clinical Impression/Diagnosis: Abdominal pain, Menstruation, abnormal Condition: Stable Disposition: HOME - Admission No - Follow up/Referral Referrals: Giuliana Knapp MD [Staff Physician] - - Patient Discharge Instructions Additional Instructions: Return to the emergency room for worsening symptoms and without fail follow-up with [facility] in 1 to 2 days for further evaluation and treatment options. - Post Discharge Activity
[2019-10-17 20:46] VITALS: BP 107/98; PULSE 67
== END 2019-10-17 20:47 | disposition home or self-care (01) ==
LOC: JER 18:47
PROC: 3E0337Z Introduction of Electrolytic and Water Balance Substance into Peripheral Vein, Percutaneous Approach (ICD-10-PCS; principal; 2019-10-17)
DX: R10.9 Unspecified abdominal pain (principal)
CPT/HCPCS: 36415; 80053; 81003; 83690; 84703; 85025; 86850; 86900; 86901; 87077; 87086; 99284-25

== ENCOUNTER 2019-10-23 12:01 | Emergency (ER) | payer OTHER ==
[2019-10-23 12:18] VITALS: BP 132/68; PULSE 54; BMI 21.3
--- NOTE | 2019-10-23 12:18 | PDOC ---
Rapid Medical Evaluation Time Seen by Provider: 10/23/19 12:17 Medical Evaluation: Allergies Allergy/AdvReac Type Severity Reaction Status Date / Time peanut Allergy Verified 02/25/19 07:20 10/23/19 12:17 I have performed a brief in-person evaluation of this patient. The patient presents with a chief complaint of:L wrist pain x 1 week, no trauma Pertinent physical exam findings:stable I have ordered the following:nothing The patient will proceed to the ED for further evaluation. Discharge Disposition - Diagnosis Wrist pain Qualifiers: Laterality: left Qualified Code(s): M25.532 - Pain in left wrist - Referrals - Patient Instructions - Post Discharge Activity
--- NOTE | 2019-10-23 12:52 | PDOC ---
History of Present Illness - General Chief Complaint: Pain Stated Complaint: LT WRIST INJURY Time Seen by Provider: 10/23/19 12:17 - History of Present Illness Initial Comments: 10/23/19 12:49 24-year-old female without comorbidities presents for evaluation of left wrist pain x1 week no trauma Past History - Medical History Allergies/Adverse Reactions: Allergies Allergy/AdvReac Type Severity Reaction Status Date / Time peanut Allergy Verified 02/25/19 07:20 Home Medications: Ambulatory Orders NK [No Known Home Medication] 02/25/19 COPD: No - Reproductive History Is Patient Now?: No - Immunization History Immunization Up to Date: Yes - Psycho-Social/Smoking History Smoking History: Never smoked Have you smoked in the past 12 months: No - Substance Abuse Hx (Audit-C & DAST Scrn) How often the patient has a drink containing alcohol: Never Score: In Men: 4 or > Positive; In Women: 3 or > Positive: 0 Screen Result (Pos requires Nsg. Audit-10AR): Negative In the last yr the pt used illegal drug/Rx for NonMed reason: No Score: Yes response is considered Positive: 0 Screen Result (Positive result requires Nsg. DAST-10): Negative Review of Systems - Review of Systems Constitutional: No: Fever Musculoskeletal: Yes: Joint Pain *Physical Exam - Vital Signs Last Vital Signs Temp Pulse Resp BP Pulse Ox 54 L 18 132/68 99 10/23/19 12:16 10/23/19 12:16 10/23/19 12:16 10/23/19 12:16 - Physical Exam 10/23/19 12:50 Left for skin color and temperature normal range of motion is full diffuse tenderness at a proportion to the examination no gross sensorimotor deficits neurovascular intact normal range of motion of the forearm and elbow ED Treatment Course - RADIOLOGY Radiology Studies Ordered: Category Date Time Status WRIST-LEFT [RAD] Stat Radiology 10/23/19 12:28 Taken Medical Decision Making - Medical Decision Making 10/23/19 12:50 X-rays of the rest left wrist show no evidence of fracture trauma or destructive process. Rest and splint Tylenol and Motrin patient assures me there is no chance of follow-up with Ortho I have reviewed the pathophysiology with the patient. They are in agreement with the treatment plan all questions were answered to their satisfaction. Understanding for follow-up without fail was also conveyed to the patient. Again they are in agreement. Patient is also requesting a work note Discharge - Discharge Information Problems reviewed: Yes Clinical Impression/Diagnosis: Wrist pain Qualifiers: Laterality: left Qualified Code(s): M25.532 - Pain in left wrist Condition: Stable Disposition: HOME - Admission No - Follow up/Referral Referrals: Abril Ibarra NP [Primary Care Provider] - Larry Marie DO [Staff Physician] - - Patient Discharge Instructions Additional Instructions: Tylenol and Motrin as directed for pain. Please use the wrist splint as directed and take it off for hygiene. Return to the emergency room for worsening symptoms and without fail follow-up with orthopedic surgery in 1 to 2 days for further evaluation and treatment options. - Post Discharge Activity Work/Back to School Note: Back to Work
== END 2019-10-23 13:11 | disposition home or self-care (01) ==
LOC: JERFT 12:01
DX: M25.532 Pain in left wrist (principal)
CPT/HCPCS: 73110-TC-LT-FY; 99283-25

== ENCOUNTER 2019-11-04 22:19 | Emergency (ER) | payer OTHER ==
--- NOTE | 2019-11-04 22:35 | PDOC ---
History of Present Illness - General Chief Complaint: Pain, Acute Stated Complaint: SICK Time Seen by Provider: 11/04/19 22:33 History Source: Patient Exam Limitations: No Limitations - History of Present Illness Initial Comments: 24F with PMH of chlamydial infection in the past presents to the ED with abdominal pain that radiates to back, which is constant and sharp. She reports the pain starting a few weeks ago and saw PMD last week and was prescribed keflex, currently on day 3. She came into the ED because the pain increased and today she developed nausea and vomiting, multiple bouts. Reports constant vaginal bleeding over the past 3 months. Denies dysuria, hematuria, vaginal discharge, or fever. PMH: as in HPI SH: see below Meds: Allergies: Tob/Etoh/Rec drugs: PCP: MICHAEL GENERAL/CONSTITUTIONAL: No fever or chills. No weakness. HEENT: No change in vision. No ear pain or discharge. No sore throat. CARDIOVASCULAR: No chest pain or shortness of breath RESPIRATORY: No cough, wheezing, or hemoptysis. GASTROINTESTINAL: +nausea, vomiting; no diarrhea or constipation. GENITOURINARY: No dysuria, frequency, or change in urination. MUSCULOSKELETAL: No joint or muscle swelling or pain. No neck or back pain. SKIN: No rash NEUROLOGIC: No headache, vertigo, loss of consciousness, or change in strength/sensation. ENDOCRINE: No increased thirst. No abnormal weight change. HEMATOLOGIC/LYMPHATIC: No anemia, easy bleeding, or history of blood clots. ALLERGIC/IMMUNOLOGIC: No hives or skin allergy. PE GENERAL: Awake, alert, and fully oriented, in no acute distress HEAD: No signs of trauma, normocephalic, atraumatic EYES: PERRLA, EOMI, sclera anicteric, conjunctiva clear ENT: Auricles normal inspection, hearing grossly normal, nares patent, oropharynx clear without exudates. Moist mucosa NECK: Normal ROM, supple, no LAD, JVD, or masses HEART: Regular rate and rhythm, normal S1 and S2, no murmurs, rubs or gallops, peripheral pulses normal and equal bilaterally. LUNGS: No distress, speaks full sentences, clear to auscultation bilaterally ABDOMEN: Soft, mild tenderness localized to RUQ/RLQ without guarding or rebound, -CVA tenderness, -diane EXTREMITIES: Normal inspection, Normal range of motion, no edema. No clubbing or cyanosis. NEUROLOGICAL: CNII-XII grossly intact. Normal speech, normal gait, no focal sensorimotor deficits SKIN: Warm, Dry, normal turgor, no rashes or lesions noted PELVIC: no vaginal discharge or lesions, 1 small clot noted, no cervical motion tenderness Assessment and Plan 1. R/o ectopic vs IUP 2. Cystitis/UTI 3. Pyelonephritis 4. PID 5. Ovarian cyst/torsion 6. Tubo-ovarian abscess Nash Gann, PGY1 Emergency Medicine Past History - Medical History Allergies/Adverse Reactions: Allergies Allergy/AdvReac Type Severity Reaction Status Date / Time peanut Allergy Verified 02/25/19 07:20 Home Medications: Ambulatory Orders NK [No Known Home Medication] 02/25/19 COPD: No - Immunization History Immunization Up to Date: Yes - Psycho-Social/Smoking History Smoking History: Never smoked Have you smoked in the past 12 months: No ED Treatment Course - LABORATORY CBC & Chemistry Diagram: 11/04/19 23:35 11/04/19 23:35 Medical Decision Making - Medical Decision Making 24F with PMH of chlamydial infection in the past presents to the ED with abdominal pain that radiates to back, which is constant and sharp, and associated with nausea and vomiting. Denies dysuria. -DDx: 1. R/o ectopic vs IUP 2. Cystitis/UTI 3. Pyelonephritis 4. PID 5. Ovarian cyst/torsion 6. Tubo-ovarian abscess -CBC, CMP, UA, Upreg -Labs remarkable for: -CBC: Hgb 9.1 -Lipase neg -CMP wnl -UA neg -Upreg neg -TVUS: negative -Patient able to tolerate fluids PO, stable for discharge home and advised to continue keflex as prescribed and follow up with PMD. Discharge - Discharge Information Problems reviewed: Yes Clinical Impression/Diagnosis: UTI (urinary tract infection) Qualifiers: Urinary tract infection type: site unspecified Hematuria presence: without hematuria Qualified Code(s): N39.0 - Urinary tract infection, site not specified Abdominal pain Qualifiers: Abdominal location: generalized Qualified Code(s): R10.84 - Generalized abdo olivia pain - Admission No - Follow up/Referral - Patient Discharge Instructions Patient Printed Discharge Instructions: DI for Urinary Tract Infection (UTI) Additional Instructions: You were seen in the ED for complaints of abdominal pain with nausea and vomiting. In the ED you were evaluated with blood work, pelvic ultrasound, urinalysis. Your results were normal. There does not appear to be an acute need for immediate hospitalization. You are advised to follow up with your Primary Care Physician within 1 week. Continue you cephalexin as prescribed. Return to the ED immediately if you experience multiple bouts of vomiting and inability to hold down fluids or severe abdominal pain. - Post Discharge Activity
[2019-11-04] MEDS ORDERED: ONDANSETRON 4 MG/2 ML VIAL IVPUSH ONE (22:52)
[2019-11-04] MEDS ORDERED: ACETAMINOPHEN 500 MG TABLET (FP) PO ONE (22:52)
[2019-11-04] MEDS ORDERED: SODIUM CHLORIDE 0.9% 500 ML INFUS.BAG IV ONE (22:52)
[2019-11-04 22:53] VITALS: BMI 19.3
[2019-11-04] MEDS ORDERED: ACETAMINOPHEN INJECTION 0 ML IVPB ONE (23:05)
[2019-11-04] MEDS ORDERED: ACETAMINOPHEN 325 MG TABLET (FP) PO ONE (23:06)
[2019-11-04] MEDS ORDERED: LACTATED RINGERS SOLUTION 1000 ML INFUS.BAG IV ONE (23:06)
[2019-11-04] MEDS ORDERED: ACETAMINOPHEN 325 MG TABLET (FP) ONE (23:10)
[2019-11-04 23:53] LABS: BASO % 0.5 % (0-2.0); EOS % 2.7 % (0-4.5); HEMATOCRIT 31.9 % (32.4-45.2); HEMOGLOBIN 9.9 GM/dL (10.7-15.3); LYMPH % 15.8 % (8-40); MCH 23.9 pg (25.7-33.7); MCHC 31.1 g/dl (32.0-36.0); MEAN CELL VOLUME 76.7 fl (80-96); MONO % 7.5 % (3.8-10.2); NEUT % 73.5 % (42.8-82.8); PLATELET COUNT 172 K/MM3 (134-434); RBC 4.16 M/mm3 (3.60-5.2); RDW 19.2 % (11.6-15.6); WHITE BLOOD COUNT 8.7 K/mm3 (4.0-10.0)
[2019-11-05 01:15] LABS: PH,URINE >= 9.0 (5.0-8.0); URINE APPEARANCE TURBID; URINE BILIRUBIN NEGATIVE (NEGATIVE); URINE COLOR YELLOW; URINE GLUCOSE (UA) NEGATIVE (NEGATIVE); URINE KETONE NEGATIVE (NEGATIVE); URINE LEUK ESTERASE NEGATIVE (NEGATIVE); URINE NITRITE NEGATIVE (NEGATIVE); URINE PROTEIN TRACE (NEGATIVE)
[2019-11-05 01:17] LABS: HCG,QUALITATIVE URINE Negative
[2019-11-05 01:18] LABS: ALBUMIN 3.8 g/dl (3.4-5.0); BILIRUBIN,TOTAL 0.2 mg/dL (0.2-1); CREATININE 0.6 mg/dL (0.55-1.3); POTASSIUM 4.1 mmol/L (3.5-5.1); TOT PROT 7.2 g/dl (6.4-8.2)
[2019-11-05] MEDS ORDERED: ACETAMINOPHEN 325 MG TABLET (FP) ONE (01:18)
--- NOTE | 2019-11-05 01:21 | PDOC ---
Documentation entered by Sandra Mckeon SCRIBE, acting as scribe for Cassidy Ahumada MD. Cassidy Ahumada MD: This documentation has been prepared by the Mike de oliveira Sydney, SCRIBE, under my direction and personally reviewed by me in its entirety. I confirm that the documentation accurately reflects all work, treatment, procedures, and medical decision making performed by me. Attending Attestation - Resident Resident Name: Nash Gann - ED Attending Attestation I have performed the following: I have examined & evaluated the patient, The case was reviewed & discussed with the resident, I agree w/resident's findings & plan, Exceptions are as noted - HPI HPI: 11/05/19 00:41 Patient is a 24 year old female with a significant past medical history of chlamydia who presents to the ED with several weeks of progressively worsening abdominal pain. As per patient, her pain is sharp, constant, and radited to her back. She endroses she was seen by her PCP last week for her symptoms and was pr escribed keflex, of which she is currently on day 3. Patient presents to the ED secondary to increased pain, nausea, and multiple episodes of NBNB vomiting. Patient notes she has had intermittent vaginal bleeding for the last 3 months. States has not had her depo shot for the past 3 months. Denies fever, chills, headache, chest pain, diarrhea, or urinary changes. Allergies: NKDA PCP: Dr. Ibarra - Physicial Exam PE: 11/05/19 01:18 General: well appearing HEENT: NCAT Abdomen: soft, mild suprapubic ttp, no rebound, no guarding Pelvic: normal external genitalia, no CMT, no adnexal tenderness or fullness, os closed - Medical Decision Making 11/05/19 01:19 24 yo F with 1 month lower abdominal pain, currently being treated for UTI/pyelo on day 3 of abx, mild suprapubic ttp but otherwise unremarkable exam, possible ruptured cyst vs. endometriosis vs. lower suspicion for PID as no discharge or CMT vs. UTI/pyelo vs. very unlikely torsion or appy given duration of symptoms. Also possible /ectopic . Plan: -labs -urine -GC/Chlamydia sent -pain control as needed -TVUS -reassess, if labs and imaging unremarkable will d/c with return precautions, recommend c/w abx and f/u with [facility] This clinical encounter is taking place during a federal and state health care emergency attributable to the novel [place]andez Virus pandemic. The [place] of the Department of Health and Human Services has declared, pursuant to the Public Health Service Act 319F-3 (42 U.S.C. 247d-6d), that a covered persons activities related to medical countermeasures against COVID-19 will be immune from liability under Federal and State law. Discharge - Discharge Information Problems reviewed: Yes Clinical Impression/Diagnosis: UTI (urinary tract infection) Qualifiers: Urinary tract infection type: site unspecified Hematuria presence: without hematuria Qualified Code(s): N39.0 - Urinary tract infection, site not specified Abdominal pain Qualifiers: Abdominal location: generalized Qualified Code(s): R10.84 - Generalized abdominal pain - Follow up/Referral - Patient Discharge Instructions Patient Printed Discharge Instructions: DI for Urinary Tract Infection (UTI) Additional Instructions: You were seen in the ED for complaints of abdominal pain with nausea and vomiting. In the ED you were evaluated with blood work, pelvic ultrasound, urinalysis. Your results were normal. There does not appear to be an acute need for immediate hospitalization. You are advised to follow up with your Primary Care Physician within 1 week. Continue you cephalexin as prescribed. Return to the ED immediately if you experience multiple bouts of vomiting and inability to hold down fluids or severe abdominal pain. - Post Discharge Activity
[2019-11-05] MEDS ORDERED: FAMOTIDINE 20 MG TABLET ONE (01:31)
[2019-11-05 03:36] VITALS: BP 120/78; PULSE 80; TEMP 98
== END 2019-11-05 03:39 | disposition home or self-care (01) ==
LOC: JER 22:19
PROC: 3E033NZ Introduction of Analgesics, Hypnotics, Sedatives into Peripheral Vein, Percutaneous Approach (ICD-10-PCS; principal; 2019-11-04)
DX: N39.0 Urinary tract infection, site not specified (principal); R10.84 Generalized abdominal pain
CPT/HCPCS: 36415; 76830-TC; 80053; 81003; 83690; 84703; 85025; 86850; 86900; 86901; 87086; 87491; 87591; 87661; 99284-25